=== PATIENT | female | born 1980 | race Caucasian/White ===

== ENCOUNTER 2018-01-25 22:13 | Emergency (ER) | END 2018-01-26 00:12 | disposition home or self-care (01) ==

== ENCOUNTER 2018-10-19 06:13 | Emergency (ER) | payer SELFPAY ==
[~2018-10-19] VITALS: Ht 144.8 cm; Wt 51.2 kg
[~2018-10-19 06:13] MED LIST: BACI28.34 TOP; CEPH-443 PO; HYDR-3498 PO; IBUP-1542 PO; NAPR-985 PO; ONDA4TAB35 PO
[2018-10-19 06:18] VITALS: BP 140/87; PULSE 118; RESP 18; Ht 144.8 cm; Wt 51.2 kg
[2018-10-19] MEDS ORDERED: ACETAMINOPHEN 500 MG TAB PO STA (06:31)
[2018-10-19] MEDS ORDERED: IBUPROFEN 800 MG TAB PO ONE (07:00)
[2018-10-19] MEDS ORDERED: ACET325T33 PO (07:24)
[2018-10-19] MEDS ORDERED: PROM6.2515 PO (07:24)
[2018-10-19] MEDS ORDERED: IBUP800T48 PO (07:24)
[2018-10-19] MEDS ORDERED: BENZ-6 PO (07:24)
--- NOTE | 2018-10-19 08:02 | ERD ---
ER Documentation Chief Complaint Chief Complaint fever/cough/chest congestion x 3 days HPI 38-year-old female presenting with cough and congestion times 3 days and fever. Patient has had a runny nose and body aches. No vomiting. No abdominal pain. No change in urination or bowel movement. No other medical problems. NKDA. Surgical history denies. Social history denies ROS All systems reviewed and are negative except as per history of present illness. Medications Home Meds Active Scripts Promethazine Hcl* (Promethazine Hcl* Syrup) 6.25 Mg/5 Ml Syrup, 6.25 MG PO Q6H PRN for COUGH, #100 ML Prov:YENNI ALFORD-C 10/19/18 Benzonatate* (Tessalon Perle*) 100 Mg Capsule, 100 MG PO Q8H PRN for COUGH, #30 CAP Prov:YENNI ALFORDC 10/19/18 Acetaminophen* (Tylenol*) 325 Mg Tablet, 2 TAB PO Q8 PRN for PAIN AND OR ELEVATED TEMP, #20 TAB Prov:YENNI ALFORDC 10/19/18 Ibuprofen* (Motrin*) 800 Mg Tab, 800 MG PO Q6, #30 TAB Prov:YENNI ALFORDC 10/19/18 Naproxen* (Naprosyn*) 500 Mg Tablet, 500 MG PO BID PRN for PAIN AND/OR INFLAMMATION, #30 TAB Prov:YENNI ALFORDC 01/26/18 Bacitracin* (Bacitracin Zinc Oint*) 28.35 Gm Oint, 1 APPLIC TOP BID, #1 TUB APPLI TO Prov:YENNI ALFORDC 01/26/18 Cephalexin* (Keflex*) 500 Mg Capsule, 500 MG PO QID for 5 Days, CAP Prov:YENNI ALFORDC 01/26/18 Ibuprofen* (Motrin*) 600 Mg Tab, 600 MG PO Q6, #30 TAB Prov:ROMAN PACHECOC 07/30/16 Cephalexin* (Keflex*) 500 Mg Capsule, 500 MG PO QID for 7 Days, CAP Prov:ROMAN PACHECOC 07/30/16 Hydrocodone Bit-Acetaminophen* (Sterling*) 5-325 Mg Tab, 1 TAB PO Q6 PRN for PAIN, #10 TAB Prov:KRISTEN BARCENAS. 04/05/15 Ondansetron Hcl* (Zofran* ODT) 4 mg -ODT Tab.disper, 4 MG PO Q6 PRN for NAUSEA AND/OR VOMITING, #10 TAB Prov:KRISTEN BARCENAS. 04/05/15 Allergies Allergies: Coded Allergies: No Known Allergy (Unverified , 10/19/18) PMhx/Soc History of Surgery: No Anesthesia Reaction: No Hx Neurological Disorder: No Hx Respiratory Disorders: No Hx Cardiac Disorders: No Hx Psychiatric Problems: No Hx Miscellaneous Medical Probl: Yes (hernia) Hx Alcohol Use: No Hx Substance Use: No Hx Tobacco Use: No FmHx Family History: No diabetes, No coronary disease, No other Physical Exam Vitals Vital Signs Date Temp Pulse Resp B/P (MAP) Pulse Ox O2 O2 Flow FiO2 Time Delivery Rate 10/19/18 99.8 07:28 10/19/18 102.1 06:44 10/19/18 102.1 06:44 10/19/18 102.1 118 18 140/87 97 06:18 (104) Physical Exam GENERAL: The patient is well-appearing, well-nourished, in no acute distress HEENT: Atraumatic. Conjunctivae are pink. Pupils equal, round, and reactive to light. There is no scleral icterus. Tympanic membranes clear bilaterally. Oropharynx clear. No nystagmus or photophobia. NECK: C-spine is soft and supple. There is no meningismus. There is no cervical lymphadenopathy. CHEST: Clear to auscultation bilaterally. There are no rales, wheezes or rhonchi. HEART: Regular rate and rhythm. No murmurs, clicks, rubs or gallops. No S3 or S4. Results 24 hrs Laboratory Tests Test 10/19/18 06:49 10/19/18 06:50 Bedside Urine pH (LAB) 5.5 Bedside Urine Protein (LAB) Negative Bedside Urine Glucose (UA) Negative Bedside Urine Ketones (LAB) Negative Bedside Urine Blood 2+ Bedside Urine Nitrite (LAB) Negative Bedside Urine Leukocyte Esterase (L Negative POC Beta HCG, Qualitative NEGATIVE Current Medications Medications Dose Sig/Michelle Start Time Status Last (Trade) Ordered Route PRN Stop Time Admin Dose Reason Admin Ibuprofen 800 mg ONCE ONCE 10/19/18 DC 10/19/18 (Motrin) PO 07:00 06:44 10/19/18 07:01 1,000 mg ONCE STAT 10/19/18 DC 10/19/18 Acetaminophen PO 06:31 06:44 (Tylenol 10/19/18 Tab) 06:33 Procedures/MDM DIAGNOSTIC IMAGING REPORT Patient: ADRYAN PRASAD : 1980 Age: 38 Sex: F MR #: [id number] DOS: 10/19/18 0631 Ordering MD: BERNARDA ALFORD PA-C Location: [facility] Room/Bed: PROCEDURE: XR Chest. CLINICAL INDICATION: Cough TECHNIQUE: AP view of the chest. COMPARISON: None FINDINGS: The heart is normal in size. There is no focal airspace consolidation. The visualized osseous structures are intact. IMPRESSION: No acute intrathoracic abnormality identified. ER course: Ibuprofen and Tylenol given ED. Influenza negative. MDM: 38-year-old female presenting with flulike symptoms. Patient's active chest x-ray is within normal limits. Urine is negative. I have low suspicion for meningitis or sepsis. I have low suspicion for pneumonia. Patient's chest x-ray is within normal limits. Patient is discharged with strict ER precautions and told to follow-up with primary care within 1-2 days for close evaluation. Patient is told to follow-up with primary care within 1-2 days for close evaluation. All questions answered discharge Departure Diagnosis: Primary Impression: Upper respiratory infection Additional Impression: Fever Condition: Stable Patient Instructions: Fever Control (Adult) Referrals: COMM[facility]IN[facility] YOU HAVE RECEIVED A MEDICAL SCREENING EXAM AND THE RESULTS INDICATE THAT YOU DO NOT HAVE A CONDITION THAT REQUIRES URGENT TREATMENT IN THE EMERGENCY DEPARTMENT. FURTHER EVALUATION AND TREATMENT OF YOUR CONDITION CAN WAIT UNTIL YOU ARE SEEN IN YOUR DOCTORS OFFICE WITHIN THE NEXT 1-2 DAYS. IT IS YOUR RESPONSIBILITY TO MAKE AN APPOINTMENT FOR FOLOW-UP CARE. IF YOU HAVE A PRIMARY DOCTOR --you should call your primary doctor and schedule an appointment IF YOU DO NOT HAVE A PRIMARY DOCTOR YOU CAN CALL OUR PHYSICIAN REFERRAL HOTLINE AT IF YOU CAN NOT AFFORD TO SEE A PHYSICIAN YOU CAN CHOSE FROM THE FOLLOWING [facility] CL[facility] [id number] [facility] [address] [facility] [facility] [address] [facility] [address] [facility]. [facility] [phone] [id number] [facility]. [facility] [address] Additional Instructions: FOLLOW UP WITH YOUR PRIMARY CARE PHYSICIAN TOMORROW.Return to this facility if you are not improving as expected. YENNI ALFORD PA-C Oct 19, 2018 08:02
== END 2018-10-19 07:32 | disposition home or self-care (01) ==
LOC: FTE 06:13
DX: J06.9 Acute upper respiratory infection, unspecified (principal)
CPT/HCPCS: 71045; 81003; 81025; 87400